=== PATIENT | female | born 1995 | race Caucasian/White ===

== ENCOUNTER 2017-08-23 23:50 | Outpatient (CLI) | payer OTHER ==
[~2017-08-23] VITALS: Ht 154.9 cm; Wt 55.4 kg
[2017-08-24] MEDS ORDERED: FERR325T5 PO (00:56)
[2017-08-24] MEDS ORDERED: CALC600T5 PO (00:56)
[2017-08-24] MEDS ORDERED: PREN1TAB79 PO (00:56)
[2017-08-24 00:57] VITALS: BP 112/60; PULSE 75; RESP 18; Ht 154.9 cm; Wt 55.4 kg
[2017-08-24 01:47] LABS: BASOPHIL # 0.1 10^3/ul (0.0-0.1); BASOPHILS % 0.4 % (0.0-2.0); EOSINOPHILS # 0.2 10^3/ul (0.0-0.5); EOSINOPHILS % 2.1 % (0.0-7.0); HEMATOCRIT 34.9 % (37.0-47.0); LYMPHOCYTES # 2.4 10^3/ul (0.8-2.9); LYMPHOCYTES % 21.3 % (18.0-55.0); MEAN CORPUSCULAR HEMOGLOBIN 29.6 pg (29.0-33.0); MEAN CORPUSCULAR HGB CONC 34.4 g/dl (32.0-37.0); MEAN PLATELET VOLUME 11.5 fl (7.4-10.4); MONOCYTES % 8.8 % (0.0-13.0); NEUTROPHIL # 7.3 10^3/ul (1.6-7.5); NEUTROPHILS % 65.1 % (30.0-74.0); PLATELET COUNT 170 10^3/UL (140-415); RED BLOOD COUNT 4.06 10^6/ul (4.20-5.40); RED CELL DISTRIBUTION WIDTH 12.6 % (11.5-14.5); WHITE BLOOD COUNT 11.2 10^3/ul (4.8-10.8)
[2017-08-24 02:03] LABS: ADD UMIC YES; UR ASCORBIC ACID NEGATIVE (NEGATIVE); UR BACTERIA FEW /HPF (NONE SEEN); UR BILIRUBIN (Dip) NEGATIVE (NEGATIVE); UR BLOOD (Dip) 1+ mg/dL (NEGATIVE); UR CLARITY CLEAR (CLEAR); UR COLOR STRAW (YELLOW); UR GLUCOSE (Dip) NEGATIVE (NEGATIVE); UR KETONES (Dip) NEGATIVE (NEGATIVE); UR LEUKOCYTE ESTERASE (Dip) 1+ Leu/ul (NEGATIVE); UR NITRITE (Dip) NEGATIVE (NEGATIVE); UR RBC 2 /HPF (0-5); UR SPECIFIC GRAVITY (Dip) 1.005 (1.003-1.030); UR TOTAL PROTEIN (Dip) NEGATIVE (NEGATIVE); UR UROBILINOGEN (Dip) NEGATIVE (NEGATIVE)
--- NOTE | 2017-08-24 02:22 | RADRPT ---
PROCEDURE: Obstetrical ultrasound, limited. CLINICAL INDICATION: labor. TECHNIQUE: Transvaginal evaluation of the cervix was performed. The images were reviewed on a PAC S workstation. COMPARISON: No prior studies are available for comparison. FINDINGS: The cervix is shortened measuring 2.9 cm. IMPRESSION: Shortened cervix measuring 2.9 cm. .Ray Tavera MD, MD Date Time Electronically viewed and signed by .Ray Tavera MD, MD on 08/24/2017 02:22 .T/
--- NOTE | 2017-08-24 03:10 | RADRPT ---
PROCEDURE: US OB placenta CLINICAL INDICATION: Vaginal bleeding TECHNIQUE: Multiple sonographic images of the pelvis were obtained. The images were reviewed on a PACS workstation. COMPARISON: Ultrasound OB cervical length of 08/24/2017 FINDINGS: There is a single live intrauterine gestation. Cardiac activity is present with 137 beats per minut e. There is a cephalic position. The placenta is left lateral and grade II. There is no evidence for an abruption. IMPRESSION: Single live intrauterine gestation. The placenta is left lateral and grade II. There is no evidence of placental abruption. There is no evidence of placenta previa on the submitted images. RPTAT: HJES .Tomasz Carrasco MD, MD Date Time Electronically viewed and signed by .Tomasz Carrasco MD, on 08/24/2017 03:10 .S/
--- NOTE | 2017-08-24 03:42 | TRIAGE ---
OB Triage Datetime Report Generated by CPN: 08/24/2017 03:42 Datetime: 08/24/2017 03:16 Contraction Comments: TOCO REMOVED Comments: US REMOVED Datetime: 08/24/2017 03:00 Stage of : OB Triage Labor Evaluation Frequency: X3 IN ONE HOUR Monitor Mode: External Duration (sec)2399: 40-90 Quality: Mild Pattern: Normal: <= 5 Contractions in 10 Minutes [address] Tone [place]: Relaxed Heart Rate FHR Baseline Rate: 135 Monitor Mode: External US Variability: Moderate 6-25 bpm Accelerations: 15X15 Decelerations: None Pain Assessment Pain Scale: 0 Pain Presence: None/Denies Pain Type: N/A Pain Goal: 3 Datetime: 08/24/2017 02:00 Stage of : OB Triage Labor Evaluation Frequency: X8 IN ONE HOUR Monitor Mode: External Duration (sec)2399: 40-90 Quality: Mild Pattern: Normal: <= 5 Contractions in 10 Minutes Resting Tone [place]: Relaxed Heart Rate FHR Baseline Rate: 135 Monitor Mode: External US Variability: Moderate 6-25 bpm Accelerations: 15X15 Decelerations: None Pain Assessment Pain Scale: 0 Pain Presence: None/Denies Pain Type: N/A Pain Goal: 3 Datetime: 08/24/2017 01:05 Stage of : OB Triage Datetime: 08/24/2017 01:00 Stage of : OB Triage Labor Evaluation Frequency: Irregular Monitor Mode: External Duration (sec)2399: 40-90 Quality: Mild Pattern: Normal: <= 5 Contractions in 10 Minutes Resting Tone [place]: Relaxed Heart Rate FHR Baseline Rate: 130 Monitor Mode: External US Variability: Moderate 6-25 bpm Accelerations: 15X15 Decelerations: None Category: Category I Datetime: 08/24/2017 00:34 Stage of : OB Triage Datetime: 08/24/2017 00:11 EGA: 32.3 Datetime: 08/24/2017 00:10 Time of Arrival: 08/23/2017 23:48 Arrived By: Wheelchair Arrived From: Home Chief Complaint: Bleeding when wiped, right lower abdominal/back pain Movement: Present Contractions: Irregular Contractions: [id number] Rupture of Membranes: Denies Vaginal Bleeding: Small Vaginal Discharge: Present Recent Sexual Intercouse: Denies Abdominal Trauma: Not Applicable Patient Complaints: Cramping; Back Pain Time Provider Notified: 08/24/2017 00:34 Provider Notified: Initial Plan: EFM x2, CBC, UA, ABO/RH, U/S for placenta location _ cervical length, PO hydration Datetime: 08/24/2017 00:05 Stage of : OB Triage Assessment Type: Triage Maternal Assessment Level of Consciousness: Fully Conscious DTR's/Clonus: DTRs 2+; No Clonus Headache: Denies Blurred Vision: No Respiratory Effort: Unlabored; Regular Rhythm; Equal Expansion Breath Sounds, Left: Clear and Equal Breath Sounds, Right: Clear and Equal Nausea/Vomiting: Denies RUQ Epigastric Pain: Denies Lower Extremities Edema: None Degree: None Upper Extremities Edema: None Degree: None Facial Edema: None Temperature Route: Oral Fall Risk Assessment History of Falling: (0) No Secondary Diagnosis: (0) No Ambulatory Aid: (0) Bedrest/Nurse Assist IV Therapy: (0) No Gait: (0) Normal/Bedrest/Immobile Mental Status: (0) Oriented to Own Ability Fall Score: 0 Fall Risk Score Definition: No Risk: No action required Pain Assessment Pain Scale: 4 Pain Presence: Intermittent Pain Type: Cramping Pain Location: Abdomen; Back Pain Relief Measures: Comfort Measures Pain Assessment Comments: [id number]
--- NOTE | 2017-08-24 05:59 | PN ---
Triage Information Date/Time August 24, 2017 Reason for visit: Abdominal pain Weeks of Gestation 32 weeks and 4 days /Para 1 para 0 Diabetes: none Hypertention: none Additional information 21-year-old with IUP at 33 weeks and 4 days presented complaining of lower abdominal pain to the right and to the back. The patient pain has been intermittent and resolve or recurs usually after she empties her bladder. She also noted to have a small amount of wiping when she wiped herself after urination. She denies any decreased movement or leaking of fluid. Objective Vital Signs Date Time Temp Pulse Resp B/P Pulse Ox O2 Delivery O2 Flow Rate FiO2 08/24/17 00:57 98.3 75 18 112/60 Room Air Heart Rate: 130's Contractions: < 5 Minutes Apart Exam General appearance: Alert and oriented 4. Patient does not appear to be in any acute distress. Abdomen: Soft, gravid, no tenderness, no real rebound tenderness, no guarding, no rigidity, fundal height consistent with gestational age NST: Category 1 and appropriate for gestational age Occasional rate contraction noted on the monitor Results/Medications Result Diagram: 08/24/17 0140 Results 24 hrs Laboratory Tests Test 08/24/17 00:00 08/24/17 01:40 Urine Color STRAW Urine Clarity CLEAR Urine pH 7.0 Urine Specific [place] 1.005 Urine Ketones NEGATIVE Urine Nitrite NEGATIVE Urine Bilirubin NEGATIVE Urine Urobilinogen NEGATIVE Urine Leukocyte Esterase 1+ H Urine Microscopic RBC 2 Urine Microscopic WBC 1 Urine Bacteria FEW A Urine Hemoglobin 1+ H Urine Glucose NEGATIVE Urine Total Protein NEGATIVE White Blood Count 11.2 H Red Blood Count 4.06 L Hemoglobin 12.0 Hematocrit 34.9 L Mean Corpuscular Volume 86.0 Mean Corpuscular Hemoglobin 29.6 Mean Corpuscular Hemoglobin Concent 34.4 Red Cell Distribution Width 12.6 Platelet Count 170 Mean Platelet Volume 11.5 H Neutrophils % 65.1 Lymphocytes % 21.3 Monocytes % 8.8 Eosinophils % 2.1 Basophils % 0.4 Nucleated Red Blood Cells % 0.0 Neutrophils # 7.3 Lymphocytes # 2.4 Monocytes # 1.0 H Eosinophils # 0.2 Basophils # 0.1 Nucleated Red Blood Cells # 0.0 Imaging Results PROCEDURE: US OB placenta CLINICAL INDICATION: Vaginal bleeding TECHNIQUE: Multiple sonographic images of the pelvis were obtained. The images were reviewed on a PACS workstation. COMPARISON: Ultrasound OB cervical length of 08/24/2017 FINDINGS: There is a single live intrauterine gestation. Cardiac activity is present with 137 beats per minute. There is a cephalic position. The placenta is left lateral and grade II. There is no evidence for an abruption. IMPRESSION: Single live intrauterine gestation. The placenta is left lateral and grade II. There is no evidence of placental abruption. There is no evidence of placenta previa on the submitted images. Disposition: Assessment/Plan Patient felt improvement of her symptoms after hydration we receive the initial preliminary report that reported a cervical length 2.9 however after receiving the final report it states that the cervix is shortened. I do not see any baseline exam for this patient at this time however due to current report and after evaluation of the images decision was made to call the patient to return back for observation and possible more monitoring and rechecking the cervix DARLEEN Martines was notified to contact the patient to have the patient to return back as soon as possible. Patient has left the unit and about 30 minutes ago We will attempt to contact the patient RD YO MD Aug 24, 2017 05:58
== END 2017-08-24 03:23 | disposition home or self-care (01) ==
LOC: L-D 23:50 → OBT 23:50
PROVIDERS: ATTEND Obstetrics & Gynecology
DX: O20.8 Other hemorrhage in early pregnancy (principal); O26.893 Other specified pregnancy related conditions, third trimester; R10.31 Right lower quadrant pain; Z3A.32 32 weeks gestation of pregnancy
CPT/HCPCS: 76815; 76817; 81001; 85025; 86900; 86901; Z7500; G0463

== ENCOUNTER 2017-08-24 08:00 | Outpatient (CLI) | payer OTHER ==
[~2017-08-24] VITALS: Ht 154.9 cm; Wt 55.4 kg
[~2017-08-24 08:00] MED LIST: CALC600T5 PO; FERR325T5 PO; PREN1TAB79 PO
[2017-08-24 08:09] VITALS: BP 106/63; PULSE 76; Ht 154.9 cm; Wt 55.4 kg
--- NOTE | 2017-08-24 10:26 | RADRPT ---
PROCEDURE: US OB biophysical profile. CLINICAL INDICATION: decreased movements, vaginal bleeding TECHNIQUE: Multiple sonographic images of the pelvis were obtained. The images were reviewed on a PACS workstation. COMPARISON: No prior studies are available for comparison. FINDINGS: There is a single viable intrauterine gestation. Cardiac activity is present with 148 beats per min [place]. There is a vertex presentation. The placenta is maternal left. There is no evidence of placental abruption. There is a normal amount of amniotic fluid with an GENO = 16.5 cm. Biophysical profile: movement 2/2 tone 2/2. breathing 2/2 GENO 2/2 Total 04/25 RPTAT: AA . IMPRESSION: Normal biophysical profile. . .Eric Gay MD, Date Time Electronically viewed and signed by .Eric Gay MD, MD on 08/24/2017 10:26 .S/
--- NOTE | 2017-08-24 11:43 | CONS ---
Date/Time of Note Date/Time of Note DATE: 08/24/17 TIME: 11:35 Consultation Date/Type/Reason Admit Date/Time August 23, 2017 OB triage consult This patient is a 21 years old 1 para 0 with estimated date of confinement of October 15, 2017 which makes her 32 weeks and 4 days today. She came to triage complaining of slight vaginal bleeding and pelvic pain since this morning. On examination she is a well-developed well-nourished patient, around 32-33 weeks. Her general vital signs appears to be normal; with blood pressure of 106/63, pulse rate of 76, respiration 18, temperature 98.2, On examination of abdomen it is soft extremely rare contraction of the uterus basically the fundus is soft . heart tone is normal. tracing is reactive with fairly good variability no decelerations. I did a pelvic exam; the cervix was closed, thick and long , Amniotic members are intact. Constitutional: No chills, No diaphoresis, No disoriented, No febrile, No improved, No no complaints, No other, No poor po, No requiring IVF, No requiring O2 Eyes: No discharge, No no complaints, No other, No pain, No redness, No visual change ENT: No bleeding, No congestion, No discharge, No dysphagia, No no complaints, No other, No pain, No sore throat Respiratory: No cough, No no complaints, No other, No pain, No pleuritic pain, No shortness of breath, No sputum, No wheezing Cardiovascular: No chest pain, No edema, No lightheadedness, No no complaints, No orthopenea, No other, No palpitations, No paroxysmal nocturnal dyspnea Gastrointestinal: No blood, No constipation, No decreased appetite, No diarrhea , No flatus, No nausea, No no complaints, No other, No pain, No passing stool, No vomiting Genitourinary: other (Pelvic exam as I mentioned was basically negative no true evidence of any bleeding or rupture of membranes), No bleeding, No discharge, No dysuria, No flank pain, No hematuria, No no complaints Musculoskeletal: No back pain, No bone/joint pain, No neck pain, No no complaints, No other, No restricted range of motion, No swelling Skin: No bruising, No erythema, No laceration, No no complaints, No other, No pruritis, No rash, No skin lesions Neurologic: No confusion, No dizziness, No focal-weakness, No headache, No no complaints, No other, No seizure, No syncope Endocrine: No dry skin, No no complaints, No other, No polydypsia, No polyuria , No temp intolerance Additional Comments . . On the lab study of August 23, 2017 yesterday; the tests were basically negative, except for slightly elevated WBC of 11.2 on the CBC and 1+ blood on the urine. on ultrasound study; report is a single live intrauterine gestation, with cardiac activity 137 bpm, in cephalic presentation ,placenta is left, no evidence of abruptio . her cervical length was reported 2.9 . .As I mentioned on my pelvic exam ,the cervix was closed. her biophysical profile was reported 04/25 with amniotic fluid index of 16.5 With these normal finding patient was given reassurance and discharged home. I advised her to rest at home no intercourse for at least 1 week and return to the OB triage in case of active labor, vaginal bleeding, or rupture of membranes. Social History Smoking Status: Never smoker Exam/Review of Systems Vital Signs Vitals Vital Signs Date Time Temp Pulse Resp B/P Pulse Ox O2 Delivery O2 Flow Rate FiO2 08/24/17 08:09 98.2 76 106/63 WESLEY MYERS MD Aug 24, 2017 11:43
--- NOTE | 2017-08-24 11:48 | TRIAGE ---
OB Triage Datetime Report Generated by CPN: 08/24/2017 11:48 Datetime: 08/24/2017 11:26 Stage of : OB Triage Datetime: 08/24/2017 10:59 Frequency: 0 Monitor Mode: External Pattern: Normal: <= 5 Contractions in 10 Minutes Resting Tone [place]: Relaxed FHR Baseline Rate: 135 Monitor Mode: External US Variability: Moderate 6-25 bpm Accelerations: 10X10 Decelerations: None Category: Category I Pain Scale: 3 Pain Presence: Intermittent Pain Type: Cramping Pain Location: Perineum Pain Goal: 0 Pain Relief Measures: Comfort Measures Datetime: 08/24/2017 10:03 Frequency: 6-7 Monitor Mode: External Duration (sec)2399: 50-70 Quality: Mild Pattern: Normal: <= 5 Contractions in 10 Minutes Resting Tone [place]: Relaxed Contraction Comments: X2 FHR Baseline Rate: 125 Monitor Mode: External US Variability: Moderate 6-25 bpm Accelerations: 10X10 Decelerations: None Category: Category I Pain Scale: 3 Pain Presence: Intermittent Pain Type: Cramping Pain Location: Perineum Pain Goal: 3 Pain Relief Measures: Comfort Measures Datetime: 08/24/2017 09:15 Stage of : OB Triage Dilatation (cms): 0.0 Exam By: DR MYERS Datetime: 08/24/2017 08:59 Frequency: 0 Monitor Mode: External Pattern: Normal: <= 5 Contractions in 10 Minutes Resting Tone [place]: Relaxed FHR Baseline Rate: 125 Monitor Mode: External US Variability: Moderate 6-25 bpm Accelerations: 10X10 Decelerations: None Category: Category I Pain Scale: 4 Pain Presence: Intermittent Pain Type: Cramping Pain Location: Right Groin Pain Goal: 3 Pain Relief Measures: Comfort Measures Datetime: 08/24/2017 08:08 Frequency: 0 Monitor Mode: External Pattern: Normal: <= 5 Contractions in 10 Minutes Resting Tone [place]: Relaxed FHR Baseline Rate: 130 Monitor Mode: External US Variability: Moderate 6-25 bpm Accelerations: None Decelerations: None Category: Category II Datetime: 08/24/2017 08:05 Stage of : OB Triage Assessment Type: Triage Level of Consciousness: Fully Conscious DTR's/Clonus: DTRs 2+; No Clonus Headache: Denies Blurred Vision: No Respiratory Effort: Unlabored; Regular Rhythm; Equal Expansion Breath Sounds, Left: Clear and Equal Breath Sounds, Right: Clear and Equal Nausea/Vomiting: Denies RUQ Epigastric Pain: Denies Facial Edema: None Temperature Route: Axillary History of Falling: (0) No Secondary Diagnosis: (0) No Ambulatory Aid: (0) Bedrest/Nurse Assist IV Therapy: (0) No Gait: (0) Normal/Bedrest/Immobile Mental Status: (0) Oriented to Own Ability Fall Score: 0 Fall Risk Score Definition: No Risk: No action required Monitor Mode: External Pattern: Normal: <= 5 Contractions in 10 Minutes Resting Tone [place]: Relaxed FHR Baseline Rate: APPLIED Monitor Mode: External US Pain Scale: 4 Pain Presence: Intermittent Pain Type: Cramping Pain Location: Right Groin Pain Goal: 3 Pain Relief Measures: Comfort Measures Datetime: 08/24/2017 08:04 Time of Arrival: 08/24/2017 07:50 EGA: 32.4 Arrived By: Ambulatory Arrived From: Home Chief Complaint: WAS INSTRUCTED PER PHONE CALL TO RETURN FOR FURTHER EVALUATION BY DR. KWON. DENIES BLEEDING, LEAKING, SM AMT OF BACK PAIN Movement: Present Contractions: Denies/Absent Rupture of Membranes: Denies Vaginal Bleeding: None Vaginal Discharge: Denies Recent Sexual Intercouse: Denies Abdominal Trauma: Not Applicable Patient Complaints: None Time Provider Notified: 08/24/2017 09:15 Provider Notified: LOUIS Initial Plan: MONITOR, BPP/GENO
== END 2017-08-24 11:40 | disposition home or self-care (01) ==
LOC: L-D 08:00 → OBT 08:00
PROVIDERS: ATTEND Obstetrics & Gynecology
DX: O20.8 Other hemorrhage in early pregnancy (principal); O26.893 Other specified pregnancy related conditions, third trimester; R10.30 Lower abdominal pain, unspecified; Z3A.32 32 weeks gestation of pregnancy
CPT/HCPCS: 76818; Z7500; G0463

== ENCOUNTER 2017-09-07 14:38 | Outpatient (CLI) | payer OTHER ==
[~2017-09-07] VITALS: Ht 154.9 cm; Wt 54.7 kg
[2017-09-07 14:52] VITALS: BP 108/64; PULSE 76; RESP 18
[2017-09-07 14:53] VITALS: Ht 154.9 cm; Wt 54.7 kg
--- NOTE | 2017-09-07 15:46 | RADRPT ---
PROCEDURE: US biophysical profile. CLINICAL INDICATION: Vaginal bleeding. TECHNIQUE: Multiple sonographic images of the uterus were obtained. The images were revi ewed on a PACS workstation. COMPARISON: No prior studies are available for comparison. FINDINGS: There is a single live intrauterine gestation. heart rate is 121 beats per minute. The position is cephalic. The placenta is left lateral grade 3 with no abruption or previa. The GENO is 7.1 cm. (Normal = 5-20 cm.) Breathing Movement: 2 Gross Body Movement: 2 Tone: 2 Qualitative Amniotic Fluid Volume: 2 TOTAL: 8 IMPRESSION: 1. The biophysical score is 8/8. RPTAT: QQ .Silvano Manning MD, MD Date Time Electronically viewed and signed by .Silvano Mannnig MD, on 09/07/2017 15:46 .R/
[2017-09-07 15:57] LABS: ADD UMIC YES; UR ASCORBIC ACID NEGATIVE (NEGATIVE); UR BACTERIA FEW /HPF (NONE SEEN); UR BILIRUBIN (Dip) NEGATIVE (NEGATIVE); UR BLOOD (Dip) 3+ mg/dL (NEGATIVE); UR CLARITY SLIGHTLY CLOUDY (CLEAR); UR COLOR YELLOW (YELLOW); UR GLUCOSE (Dip) NEGATIVE (NEGATIVE); UR KETONES (Dip) NEGATIVE (NEGATIVE); UR LEUKOCYTE ESTERASE (Dip) 3+ Leu/ul (NEGATIVE); UR NITRITE (Dip) NEGATIVE (NEGATIVE); UR RBC 8 /HPF (0-5); UR SPECIFIC GRAVITY (Dip) 1.009 (1.003-1.030); UR SQUAMOUS EPITHELIAL CELL MODERATE /HPF (FEW); UR TOTAL PROTEIN (Dip) NEGATIVE (NEGATIVE); UR UROBILINOGEN (Dip) NEGATIVE (NEGATIVE)
--- NOTE | 2017-09-07 16:49 | TRIAGE ---
OB Triage Datetime Report Generated by CPN: 09/07/2017 16:49 Datetime: 09/07/2017 16:42 Vaginal Exam Dilatation (cms): 0.0 Exam By: FOROOHAR Vaginal Bleeding: None Cervix, Position: Posterior Datetime: 09/07/2017 16:00 Stage of : OB Triage Maternal Assessment Level of Consciousness: Fully Conscious Labor Evaluation Frequency: 2UC/HR Monitor Mode: External Duration (sec)2399: 100-120 Quality: Mild Resting Tone [place]: Relaxed Heart Rate FHR Baseline Rate: 135 Monitor Mode: External US Variability: Moderate 6-25 bpm Accelerations: 15X15 Decelerations: None Category: Category I Pain Assessment Pain Scale: 0 Pain Goal: 3 Membrane Status: Intact Vaginal Bleeding: None Datetime: 09/07/2017 14:49 Assessment Type: Triage Maternal Assessment Level of Consciousness: Fully Conscious DTR's/Clonus: DTRs 2+; No Clonus Headache: Denies Blurred Vision: No Respiratory Effort: Unlabored; Regular Rhythm; Equal Expansion Breath Sounds, Left: Clear and Equal Breath Sounds, Right: Clear and Equal Nausea/Vomiting: Denies RUQ Epigastric Pain: Denies Lower Extremities Edema: None Degree: None Upper Extremities Edema: None Degree: None Facial Edema: None Fall Risk Assessment History of Falling: (0) No Secondary Diagnosis: (0) No Ambulatory Aid: (0) Bedrest/Nurse Assist IV Therapy: (0) No Gait: (0) Normal/Bedrest/Immobile Mental Status: (0) Oriented to Own Ability Fall Score: 0 Fall Risk Score Definition: No Risk: No action required Datetime: 09/07/2017 14:48 Time of Arrival: 09/07/2017 14:33 EGA: 34.4 Arrived By: Ambulatory Arrived From: Home Chief Complaint: PT HERE C/O BLOOD IN URINE Movement: Present Contractions: Denies/Absent Rupture of Membranes: Denies Vaginal Bleeding: None Vaginal Discharge: Denies Recent Sexual Intercouse: Denies Abdominal Trauma: Not Applicable Patient Complaints: None Time Provider Notified: 09/07/2017 15:00 Provider Notified: [facility] Initial Plan: EFM/BPP/UA Datetime: 09/07/2017 14:46 Monitor Mode: External Monitor Mode: External US Datetime: 08/24/2017 08:05 Fall Score: 0 Fall Risk Score Definition: No Risk: No action required Datetime: 08/24/2017 08:04 EGA: 32.4 Datetime: 08/24/2017 00:11 EGA: 32.3 Datetime: 08/24/2017 00:05 Fall Score: 0 Fall Risk Score Definition: No Risk: No action required
--- NOTE | 2017-09-07 17:37 | CONS ---
Date/Time of Note Date/Time of Note DATE: 09/07/17 TIME: 17:31 Consultation Date/Type/Reason Admit Date/Time September 06, 2017 The patient is a 21 years old, 1, para 0, with estimated date of confinement of 10/17/2017, which makes her 34 weeks and 4 days today. She came to triage complaining of blood in urine today. On examination she is well-developed well-nourished lady, near -term her vital signs are normal; with blood pressure of 108 over 64, pulse rate 76 , respiration 18,, temperature 92.2 and oxygen saturation is 100% on room temperature. On examination as I mentioned she does not have a CVA tenderness. when I did a pelvic exam about half an hour ago there was no blood in the vagina, however the Nurse indicate that the urine was bloody Reason for Consultation Laboratory Tests Test 09/07/17 14:40 Urine Color YELLOW Urine Clarity SLIGHTLY CLOUDY Urine pH 7.0 Urine Specific [place] 1.009 Urine Ketones NEGATIVEmg/dL Urine Nitrite NEGATIVEmg/dL Urine Bilirubin NEGATIVEmg/dL Urine Urobilinogen NEGATIVEmg/dL Urine Leukocyte Esterase 3+[place]/ul Urine Microscopic RBC 8/HPF Urine Microscopic WBC 3/HPF Urine Squamous Epithelial Cells MODERATE/HPF Urine Bacteria FEW/HPF Urine Hemoglobin 3+mg/dL Urine Glucose NEGATIVEmg/dL Urine Total Protein NEGATIVEmg/dl Constitutional: No chills, No diaphoresis, No disoriented, No febrile, No improved, No no complaints, No other, No poor po, No requiring IVF, No requiring O2 Eyes: No discharge, No no complaints, No other, No pain, No redness, No visual change ENT: No bleeding, No congestion, No discharge, No dysphagia, No no complaints, No other, No pain, No sore throat Respiratory: No cough, No no complaints, No other, No pain, No pleuritic pain, No shortness of breath, No sputum, No wheezing Cardiovascular: No chest pain, No edema, No lightheadedness, No no complaints, No orthopenea, No other, No palpitations, No paroxysmal nocturnal dyspnea Gastrointestinal: other (On pelvic examination vulva vagina were normal no evidence of blood inside the vagina cervix was closed), No blood, No constipation, No decreased appetite, No diarrhea, No flatus, No nausea, No no complaints, No pain, No passing stool, No vomiting Genitourinary: No bleeding, No discharge, No dysuria, No flank pain, No hematuria, No no complaints Musculoskeletal: No back pain, No bone/joint pain, No neck pain, No no complaints, No other, No restricted range of motion, No swelling Skin: No bruising, No erythema, No laceration, No no complaints, No other, No pruritis, No rash, No skin lesions Neurologic: No confusion, No dizziness, No focal-weakness, No headache, No no complaints, No other, No seizure, No syncope Endocrine: No dry skin, No no complaints, No other, No polydypsia, No polyuria , No temp intolerance Additional Comments On laboratory study ;her urine blood was 3+; leukoesterase was 3+ on ultrasound study; the report was a single live intrauterine , cephalic presentation, heart rate was 139 bpm amniotic fluid level was 50.7 cm, her biophysical was 8/8. With this positive finding patient was discharged home ,. Prescription given for Macrobid 100 mg, to be taken every 12 hours. 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 End of dictation . Social History Smoking Status: Never smoker Exam/Review of Systems Vital Signs Vitals Vital Signs Date Time Temp Pulse Resp B/P Pulse Ox O2 Delivery O2 Flow Rate FiO2 09/07/17 14:52 98.2 76 18 108/64 100 Room Air Results Results 24 hrs Laboratory Tests Test 09/07/17 14:40 Urine Color YELLOW Urine Clarity SLIGHTLY CLOUDY A Urine pH 7.0 Urine Specific [place] 1.009 Urine Ketones NEGATIVE Urine Nitrite NEGATIVE Urine Bilirubin NEGATIVE Urine Urobilinogen NEGATIVE Urine Leukocyte Esterase 3+ H Urine Microscopic RBC 8 H Urine Microscopic WBC 3 Urine Squamous Epithelial Cells MODERATE Urine Bacteria FEW A Urine Hemoglobin 3+ H Urine Glucose NEGATIVE Urine Total Protein NEGATIVE WESLEY MYERS MD Sep 07, 2017 17:37
== END 2017-09-07 17:00 | disposition home or self-care (01) ==
LOC: OBT 14:38 → L-D 14:38 → OBT 17:00
PROVIDERS: ATTEND Obstetrics & Gynecology
DX: O26.893 Other specified pregnancy related conditions, third trimester (principal); R31.9 Hematuria, unspecified; Z3A.34 34 weeks gestation of pregnancy
CPT/HCPCS: 76818; 81001; 87086; Z7500; G0463

== ENCOUNTER 2017-09-21 13:30 | Inpatient (IN) | END 2017-09-23 13:30 | disposition home or self-care (01) | DRG 782 ==

== ENCOUNTER 2017-10-21 11:50 | Inpatient (IN) | END 2017-10-24 16:35 | disposition home or self-care (01) | DRG 775 ==